=== PATIENT | female | born 1980 | race Caucasian/White ===

== ENCOUNTER → 2017-08-09 | Outpatient (CLI) | payer BC, OTHER ==
[~2017-08-09] MED LIST: IBUP-1222 PO; None per pt; PREN1TAB52 PO
[2017-08-09 16:18] LABS: BASOPHILS # (AUTO) 0.04 x10^3/uL (0-0.1); BASOPHILS % (AUTO) 1 % (0-1); EOSINOPHILS # (AUTO) 0.06 x10^3/uL (0-0.4); EOSINOPHILS % (AUTO) 1 % (1-7); LYMPHOCYTES # (AUTO) 2.15 x10^3/uL (1-3.4); LYMPHOCYTES % (AUTO) 34 % (22-44); MD NO; MEAN CORPUSCULAR HEMOGLOBIN 28.6 pg (27.0-34.8); MEAN CORPUSCULAR HGB CONC 33.6 g/dL (32.4-35.8); MEAN CORPUSCULAR VOLUME 85.2 fL (80-100); MEAN PLATELET VOLUME 8.1 fL (7.4-10.4); MONOCYTES # (AUTO) 0.38 x10^3/uL (0.2-0.8); MONOCYTES % (AUTO) 6 % (2-9); NEUTROPHILS # (AUTO) 3.74 x10^3/uL (1.8-6.8); NEUTROPHILS % (AUTO) 59 % (42-75); PLATELET COUNT 233 x10^3/uL (130-400); RED BLOOD COUNT 4.99 x10^6/uL (3.82-5.3); RED CELL DISTRIBUTION WIDTH 13.2 % (9.6-15.2)
[2017-08-09 16:38] LABS: ANION GAP 7 mmol/L (5-15); CALCIUM 9.1 mg/dL (8.5-10.1); CHLORIDE 109 mmol/L (98-107); CREATININE 0.96 mg/dL (0.55-1.02)
== END | disposition home or self-care (01) ==
LOC: STAR 15:41
PROVIDERS: ATTEND Obstetrics & Gynecology
DX: Z01.818 Encounter for other preprocedural examination (principal); Z30.2 Encounter for sterilization; N94.6 Dysmenorrhea, unspecified
CPT/HCPCS: 36415; 80048; 84703; 85025

== ENCOUNTER 2017-10-01 10:36 | Day surgery (SDC) | payer OTHER ==
[~2017-10-01] VITALS: Ht 157.5 cm; Wt 60.9 kg
[~2017-10-01 10:36] MED LIST changes: +BUPIVACAINE/PF 0.25% ONE
[2017-10-01] MEDS ORDERED: LACTATED RINGERS 1,000 ML IV SCH (11:06)
[2017-10-01] MEDS ORDERED: DESO1TAB PO (11:08)
[2017-10-01 11:10] VITALS: BP 111/74
[2017-10-01] MEDS ORDERED: BUPIVACAINE/PF 0.25% ONE (11:18)
[2017-10-01] MEDS ORDERED: SILVER NITRATE STICK TP ONE (11:19)
[2017-10-01] MEDS ORDERED: EPINEPHRINE 1 MG/ML, 1ML ONE (11:19)
[2017-10-01 11:30] LABS: HCG UR SG 1.019 (1.003-1.030)
[2017-10-01] MEDS ORDERED: MIDAZOLAM 1 MG/ML, 2ML ONE (11:50)
[2017-10-01] MEDS ORDERED: SUCCINYLCHOLINE 20 MG/ML, 10ML ONE (11:51)
[2017-10-01] MEDS ORDERED: LIDOCAINE GEL 2%, 5ML ONE (11:51)
[2017-10-01] MEDS ORDERED: FENTANYL PF 250 MCG/5ML ONE (11:51)
[2017-10-01] MEDS ORDERED: PROPOFOL 10 MG/ML, 20ML ONE (11:51)
[2017-10-01] MEDS ORDERED: ONDANSETRON ODT 8 MG PO ONE (12:00)
[2017-10-01] MEDS ORDERED: OxyconTIN ER 10 MG TAB.ER PO ONE (12:00)
[2017-10-01] MEDS ORDERED: SCOPOLAMINE PATCH, 1.5MG PATCH.TD72 TD ONE (12:00)
[2017-10-01] MEDS ORDERED: ACETAMINOPHEN 500 MG TABLET PO ONE (12:00)
[2017-10-01] MEDS ORDERED: DEXAMETHASONE 4 MG/ML, 5ML ONE (12:18)
[2017-10-01] MEDS ORDERED: ONDANSETRON 2MG/ML, 2ML ONE (12:18)
[2017-10-01] MEDS ORDERED: CEFAZOLIN 1,000 MG ONE (12:18)
[2017-10-01] MEDS ORDERED: FENTANYL PF 100 MCG/2ML ONE (13:27)
[2017-10-01] MEDS ORDERED: KETOROLAC 30 MG/1 ML ONE (13:27)
[2017-10-01] MEDS ORDERED: OXYcodone 5 MG/5 ML ORAL.SOL UDC ONE (13:28)
[2017-10-01] MEDS: FENTANYL PF 100 MCG/2ML IV PRN ×2 (13:28→13:50)
[2017-10-01] MEDS ORDERED: LORazepam 2 MG/ML, 1ML IVPush PRN (13:30)
[2017-10-01] MEDS ORDERED: OXYcodone 5 MG/5 ML ORAL.SOL UDC PO PRN (13:30)
[2017-10-01] MEDS ORDERED: PROMETHAZINE 25 MG/ML, 1ML IV PRN (13:30)
[2017-10-01] MEDS ORDERED: LABETALOL 5MG/ML, 20ML IV PRN (13:30)
[2017-10-01] MEDS ORDERED: KETOROLAC 30 MG/1 ML IV PRN (13:30)
[2017-10-01] MEDS ORDERED: HYDROmorphone 1 MG/ML, 1ML IV PRN (13:30)
[2017-10-01] MEDS ORDERED: hydrALAzine 20 MG/ML, 1ML IV PRN (13:30)
[2017-10-01] MEDS ORDERED: MEPERIDINE/PF 25MG/0.5ML IVPush PRN (13:30)
[2017-10-01] MEDS ORDERED: ALBUTEROL SULFATE 2.5 MG/3 ML NPPB PRN (13:30)
== END 2017-10-01 15:20 ==
LOC: OUT 10:36
PROVIDERS: ATTEND Obstetrics & Gynecology
DX: N94.6 Dysmenorrhea, unspecified (principal); Z30.2 Encounter for sterilization; Z88.0 Allergy status to penicillin; Z87.442 Personal history of urinary calculi; Z98.890 Other specified postprocedural states
CPT/HCPCS: 36415; 58670; 81025; 86850; 86900; 88302; J0171; J0330; J0690; J1100; J1885; J2250; J2405; J2704; J3010; J3490; Q0162